=== PATIENT | female | born 1945 | race African-American/Black ===

== ENCOUNTER 2017-04-05 08:44 | Emergency (ER) | payer MEDICARE, MEDICAID | END 2017-04-05 09:29 | disposition home or self-care (01) | LOC: ER 08:44 | DX: L24.0 Irritant contact dermatitis due to detergents (principal); E11.9 Type 2 diabetes mellitus without complications; I10 Essential (primary) hypertension | CPT/HCPCS: 99283 ==

== ENCOUNTER 2019-03-19 05:35 | Emergency (ER) | payer MEDICARE, MEDICAID ==
[~2019-03-19] VITALS: Ht 162.6 cm; Wt 62.6 kg
[~2019-03-19 05:35] MED LIST: TRIA15OI TP
[2019-03-19 05:45] VITALS: BP 134/75
--- NOTE | 2019-03-19 06:24 | PHYS DOC ---
Past Medical History Past Medical History: Diabetes-Type II, Hypertension Additional Past Medical Histor: breast cancer Past Surgical History: Other Additional Past Surgical Histo: R breast cancer- tumor and lymphnodes removed Smoking: Cigarettes (The patient is a nonsmoker.) Alcohol Use: None Drug Use: None Adult General Chief Complaint Chief Complaint: Congestion HPI HPI Patient is a 73-year-old female who presents to the emergency department for evaluation of over a week of nasal congestion, and a nonproductive cough. She reports shortness of breath, primarily related to her nasal congestion. She has not had any chest pain. She has not had any fevers or chills, nausea, vomiting, or abdominal pain. There are no alleviating or exacerbating factors to her symptoms. Review of Systems Review of Systems Constitutional: Denies fever or chills [] Eyes: Denies change in visual acuity, redness, or eye pain [] HENT: Denies otalgia or sore throat [] Respiratory: Reports cough and shortness of breath [] Cardiovascular: The patient denies any chest pain, palpitations, or orthopnea [] GI: Denies abdominal pain, nausea, vomiting, bloody stools or diarrhea [] : Denies dysuria or hematuria [] Musculoskeletal: Denies back pain or joint pain [] Integument: Denies rash or skin lesions [] Neurologic: Denies headache, focal weakness or sensory changes [] Endocrine: Denies polyuria or polydipsia [] All other systems were reviewed and found to be within normal limits, except as documented in this note. Allergies Allergies Allergies Coded Allergies Type Severity Reaction Last Updated Verified Penicillins Allergy Intermediate 04/05/17 Yes Physical Exam Physical Exam PHYSICAL EXAM: CONSTITUTIONAL: Well developed, well nourished HEAD: normocephalic, atraumatic EENT: PERRL, EOMI. Conjunctivae normal color, sclerae non-icteric; moist mucous membranes. NECK: Supple, non-tender; no meningismus. LUNGS: Lungs CTA, breathing even and unlabored. Normal air movement. HEART: Regular rate and rhythm, there is a soft diastolic murmur CHEST: No deformity; non-tender ABDOMEN: The abdomen is soft, and non-tender, no masses or bruits. EXTREM: Normal ROM; no deformity, no calf tenderness. Normal pulses palpable in all extremities. There is no pedal edema. SKIN: No rash; no diaphoresis NEURO: Alert; normal speech and cognition; CN's grossly intact; strength grossly intact without focal deficit. BACK: No CVA TTP. Current Patient Data Vital Signs Vital Signs Date Time Temp Pulse Resp B/P (MAP) Pulse Ox O2 Delivery O2 Flow Rate FiO2 03/19/19 05:45 97.5 103 20 134/75 (94) 99 Room Air 97.5 Lab Values Laboratory Tests Test 03/19/19 06:35 Influenza Type A Antigen Negative (NEGATIVE) Influenza Type B Antigen Negative (NEGATIVE) EKG EKG Occult normal sinus rhythm at a rate of 97 beats for minute, left axis deviation, normal intervals, borderline left ventricular hypertrophy, there are no acute ischemic ST/T changes.[] Radiology/Procedures Radiology/Procedures PROCEDURE: CHEST PA & LATERAL Chest, PA and Lateral: Technique: PA and lateral views of the chest were obtained. History: Cough. Comparison: None. Findings: The cardiomediastinal silhouette grossly appears unremarkable. Mild right lung base airspace opacity likely atelectasis or infiltrates. Moderate degenerative changes thoracic spine. IMPRESSION: 1. Patchy airspace opacities identified in the right lung base likely atelectasis or infiltrates. Follow-up to resolution.[] Course & Med Decision Making Course & Med Decision Making Pertinent Labs and Imaging studies reviewed. (See chart for details) []Patient remains stable. I discussed test results, the need for close follow- up, and return precautions. Dragon Disclaimer Dragon Disclaimer This electronic medical record was generated, in whole or in part, using a voice recognition dictation system. Departure Departure Impression: Primary Impression: Cough Disposition: 01 HOME, SELF-CARE Condition: STABLE Referrals: KELSY INIGUEZ MD (PCP) Patient Instructions: Cough, Adult, Pneumonia, Adult Scripts Azithromycin (AZITHROMYCIN TABLET) 250 Mg Tablet 1 PKG PO UD, #6 TAB Prov: CARLOS SHABAZZ MD 03/19/19 CARLOS SHABAZZ MD Mar 19, 2019 06:24
--- NOTE | 2019-03-19 06:47 | RAD ---
Chest, PA and Lateral: Technique: PA and lateral views of the chest were obtained. History: Cough. Comparison: None. Findings: The cardiomediastinal silhouette grossly appears unremarkable. Mild right lung base airspace opacity likely atelectasis or infiltrates. Moderate degenerative changes thoracic spine. IMPRESSION: 1. Patchy airspace opacities identified in the right lung base likely atelectasis or infiltrates. Follow-up to resolution. Electronically signed by: Scott Randolph MD (03/19/2019 6:44 AM) [facility]
[2019-03-19 07:29] LABS: INFLUENZA A PATIENT NEGATIVE (NEGATIVE); INFLUENZA B PATIENT NEGATIVE (NEGATIVE)
[2019-03-19] MEDS ORDERED: AZIT250T6 PO (07:34)
--- NOTE | 2019-03-19 07:35 | EKG ---
[facility] [address] [place] [address] Test Date: 2019-03-19 Test Time: 06:40:54 Pat Name: NOEMÍ JAIN Department: Room: Gender: F Methods Analyst Data Processing: : 1945 Requested By: CARLOS SHABAZZ Order Number: [id number] Reading MD: Pasquale Cerna MD Measurements Intervals Fine Rate: 97 P: 48 MD: 162 QRS: -8 QRSD: 86 T: 45 QT: 372 QTc: 477 Interpretive Statements SINUS RHYTHM Electronically Signed On 03-19-2019 13:40:52 ANIMAL CYTOLOGIST by Pasquale Cerna MD
== END 2019-03-19 07:42 | disposition home or self-care (01) ==
LOC: ER 05:35
DX: R05 Cough (principal); R09.81 Nasal congestion; R06.02 Shortness of breath; E11.9 Type 2 diabetes mellitus without complications; I10 Essential (primary) hypertension; Z88.0 Allergy status to penicillin
CPT/HCPCS: 71046; 87804; 93005; 99285-25

== ENCOUNTER → 2019-04-04 | Outpatient (CLI) | payer MEDICARE, MEDICAID ==
[2019-03-19 05:45] VITALS: BP 134/75
[~2019-04-04] MED LIST changes: +AZIT250T6 PO
--- NOTE | 2019-04-04 09:06 | RAD ---
EXAM: Chest, 2 views. HISTORY: Pneumonia. COMPARISON: 03/19/2019 FINDINGS: 2 views of the chest are obtained. There has been segmental interval increase in a small right pleural effusion and right lower lobe interstitial infiltrate. There is stable suspected lingular and left lower lobe atelectasis. There is stable enlargement of the cardiac silhouette. There is right apical pleural parenchymal scarring. There are changes consistent with right breast conservation therapy with axillary lymph node dissection. IMPRESSION: Slight interval increase in a suspected small right pleural effusion and right lower lobe interstitial infiltrate. This may be superimposed on chronic interstitial changes given overlying findings consistent with breast conservation therapy. Electronically signed by: Sirisha Aguirre MD (04/04/2019 9:03 AM) [id number]
== END | disposition home or self-care (01) ==
LOC: RAD 08:43
PROVIDERS: ATTEND Internal Medicine
DX: J90 Pleural effusion, not elsewhere classified (principal); J98.4 Other disorders of lung; J18.9 Pneumonia, unspecified organism
CPT/HCPCS: 71046

== ENCOUNTER 2020-08-31 08:32 | Emergency (ER) | payer MEDICARE, MEDICAID ==
[~2020-08-31] VITALS: Ht 162.6 cm; Wt 64.4 kg
[2020-08-31] MEDS ORDERED: LIDOCAINE (700MG/PATCH) PATCH. TD SCH (09:00)
[2020-08-31 09:23] VITALS: BP 187/88
--- NOTE | 2020-08-31 10:29 | RAD ---
EXAM: Pelvis and right hip, 3 views. HISTORY: Pain. COMPARISON: None. FINDINGS: A frontal view of the pelvis and 2 views of the right hip are obtained. There is no fractur e, dislocation or subluxation. There is degenerative change involving the lower lumbar spine. IMPRESSION: No acute osseous finding. Electronically signed by: Sirisha Aguirre MD (08/31/2020 10:27 AM) [id number]
--- NOTE | 2020-08-31 10:49 | PHYS DOC ---
Past Medical History Past Medical History: Cancer, Diabetes-Type II, Hypertension, Other Additional Past Medical Histor: breast cancer Past Surgical History: Other Additional Past Surgical Histo: MASECTOMY Smoking Status: Never Smoker Alcohol Use: None Drug Use: None General Adult EDM: Chief Complaint: HIP PAIN HPI: HPI: 74-year-old female presents the ED with complaints of right hip pain that started on Monday when patient slipped and fell in a grocery store due to the floor being wet. Patient reports she landed on her right hip and has been able to ambulate afterwards. Was told to be checked out because she has pain when she leans on her right hip/side. Came today and not Monday "Because I was told to get checked out. I know it's not broken, I can walk on it." No prior injury to this hip. No pain in the middle of her back, right knee, or right ankle. Has not taken anything for the pain. Review of Systems: Review of Systems: Constitutional: Denies fever or chills. [] Eyes: Denies change in visual acuity. [] HENT: Denies nasal congestion or sore throat. [] Respiratory: Denies cough or shortness of breath. [] Cardiovascular: Denies chest pain or edema. [] GI: Denies abdominal pain, nausea, vomiting, bloody stools or diarrhea. [] : Denies dysuria, hematuria, vaginal bleeding or saddle anesthesia Musculoskeletal: Denies back pain or CVA tenderness Integument: Denies rash or diaphoresis Neurologic: Denies headache, neck pain, focal weakness or sensory changes. [] Endocrine: Denies polyuria or polydipsia. [] Lymphatic: Denies swollen glands. [] Psychiatric: Denies depression or anxiety. [] Heart Score: C/O Chest Pain: No Risk Factors: Risk Factors: DM, Current or recent (<one month) smoker, HTN, HLP, family history of CAD, obesity. Risk Scores: Score 0 - 3: 2.5% MACE over next 6 weeks - Discharge Home Score 4 - 6: 20.3% MACE over next 6 weeks - Admit for Clinical Observation Score 7 - 10: 72.7% MACE over next 6 weeks - Early Invasive Strategies Current Medications: Current Medications Medications (Trade) Dose Ordered Sig/Helena Start Time Stop Time Status Last Admin Dose Admin Lidocaine (Lidoderm) 1 patch DAILY 5/24/21 09:00 08/31/20 10:10 1 PATCH Allergies: Allergies: Allergies Coded Allergies Type Severity Reaction Last Updated Verified Penicillins Allergy Intermediate 04/05/17 Yes codeine Allergy Unknown UNKNOWN 08/31/20 Yes Physical Exam: PE: Constitutional: Well developed, well nourished, no acute distress, non-toxic appearance. HENT: Normocephalic, atraumatic, no signs of head trauma Eyes: EOMI, conjunctiva normal, no discharge. Neck: Normal range of motion, supple, Cardiovascular: S1/2 present, regular rhythm Lungs & Thorax: Speaking in full sentences, bilateral equal chest rise, no tachypnea or increased work of breathing Abdomen: soft, no tenderness, Skin: Warm, dry, no erythema, no rash, normal skin turgor, cap refill less than 1 second to both legs Back: No midline tenderness, no CVA tenderness. [] Extremities: No reproducible tenderness, patient's location of pain is proximal right hip over greater/lesser trochanters, no pain w/pelvic rocking, scar over right lateral thigh, no pain over right knee or ankle, no cyanosis, no lower extremity edema Neurologic: Alert and oriented X 3, normal motor function, normal sensory function, no focal deficits noted. [] Psychologic: Affect normal, judgement normal, mood normal. [] Nexus C-spine criteria are negative: There is no post midline tenderness, the patient is not intoxicated, there is a normal level of alertness, there are no focal neurologic deficits and there are no distracting injuries. Current Patient Data: Vital Signs: Vital Signs Date Time Temp Pulse Resp B/P (MAP) Pulse Ox O2 Delivery O2 Flow Rate FiO2 08/31/20 09:23 98.4 67 17 187/88 (121) 100 Room Air 98.4 EKG: EKG: [] Radiology/Procedures: Radiology/Procedures: IMAGING REPORT Signed PATIENT: NOEMÍ JAIN ACCOUNT: [id number] : 1945 LOCATION: ER AGE: 74 SEX: F EXAM STATUS: REG ER ORD. PHYSICIAN: KARIME KHAILL DO REASON: right Hip pain PROCEDURE: HIP RIGHT 2V WITH PELVIS EXAM: Pelvis and right hip, 3 views. HISTORY: Pain. COMPARISON: None. FINDINGS: A frontal view of the pelvis and 2 views of the right hip are obtain ed. There is no fracture, dislocation or subluxation. There is degenerative change involving the lower lumbar spine. IMPRESSION: No acute osseous finding. Electronically signed by: Sirisha Rogers MD (08/31/2020 10:27 AM) [id number] DICTATED and SIGNED BY: SIRISHA ROGERS MD DATE: 08/31/20 [id number] 0 Course & Med Decision Making: Course & Med Decision Making Pertinent Labs and Imaging studies reviewed. (See chart for details) Concern for accidental blunt injury to right hip with no inability to bear weight, no signs of trauma. Patient well-appearing and in no distress. Patient refused to wait for her follow-up instructions/DC papers. Will discharge home with strict ED return precautions were given for saddle anesthesia, urine or bowel retention or incontinence, midline back pain or difficulties ambulating. Encouraged urgent outpatient follow-up with PMD and orthopedic surgery for definitive management. Life-threatening processes were considered but are low suspicion at this time, given history, physical exam and ED workup. Pt was educated on all prescription medications and adverse effects. All patient's questions were answered and pt was stable at time of discharge. Life/limb-threatening differential includes but is not limited to, avascular necrosis, septic arthritis, malignancy, compartment syndrome, fracture/ligamentous injury/overuse, decompression sickness, seronegative spondyloarthropathies, trauma including dislocation/fracture, Lyme disease, lupus, arthritis differentials, gout/pseudogout or decompression sickness. I spoken with the patient and her caregivers. I explained the patient's condition, diagnoses and treatment plan based on the information available to me at this time. I have answered the patient and her caregiver's questions and addressed any concerns. The patient and her caregivers have a good understanding of patient's diagnosis, condition and treatment plan as can be expected at this point. Vital signs have been stable. Patient's condition is stable and appropriate for discharge from the emergency department. Patient will pursue further outpatient evaluation with primary care physician or other designated or consulting physician as outlined in the discharge instructions. The patient and/or caregivers are agreeable to this plan of care and follow-up instructions have been explained in detail. The patient and/or caregivers have received these instructions in written form and have expressed an understanding of the discharge instructions. The patient and/or caregivers are aware that any significant change of condition or worsening of symptoms should prompt immediate return to this or the closest emergency department or call to 911. Andi Disclaimer: Andi Disclaimer: This electronic medical record was generated, in whole or in part, using a voice recognition dictation system. Departure Departure Impression: Primary Impression: Right hip pain Disposition: HOME / SELF CARE / HOMELESS Condition: STABLE Referrals: KELSY INIGUEZ MD (PCP) Follow-up with your primary care physician in the next week or FOLLOW UP WITH FAMILY MEDICINE: [address], [address] [place] [address] Patient Instructions: Hip Pain Additional Instructions: FOLLOW UP WITH ORTHOPEDICS: May benefit from further imaging/follow-up for definitive management Orthopaedic Sports Medicine Orthopaedic Surgery [facility] [address], [address] [place] [address] EMERGENCY DEPARTMENT GENERAL DISCHARGE INSTRUCTIONS Thank you for coming to [facility] Emergency Department (ED) today and trusting us with you care. We trust that you had a positive experience in our Emergency Department. If you wish to speak to the department management, you may call the Director at [phone]. YOUR FOLLOW UP INSTRUCTIONS ARE FOLLOWS: 1. Do you have a private Doctor? If you do not have a private doctor, please ask for a resource list of physicians or clinics that may be able to assist you with follow up care. 2. The Emergency Physicain has interpreted your x-rays. The X-Ray specialist will also review them. If there is a change in the findings, you will be notified in 48 hours when at all possible. 3. A lab test or culture has been done, your results will be reviewed and you will be notified if you need a change in treatment. ADDITIONAL INSTRUCTIONS AND INFORMATION: 1. Your care today has been supervised by a physician who is specially trained in emergency care. Many problems require more than one evaluation for a complete diagnosis and treatment. We recommend that you schedule your follow up appointment as recommended to ensure complete treatment of you illness or injury. If you are unable to obtain follow up care and continue to have a problem, or if your condition worsens, we recommend that you return to the ED. 2. We are not able to safely determine your condition over the phone nor are we able to give sound medical advice over the phone. For these safety reasons, if you call for medical advice we will ask you to come to the ED for further evaluation. 3. If you have any questions regarding these discharge instructions please call the ED at [phone]. SAFETY INFORMATION: In the interest of safety, wellness, and injury prevention; we encourage you to wear your sealbelt, if you smoke; quite smoking, and we encourage family to use a protective helmet for bicycling and other sporting events that present an increased risk for head injury. IF YOUR SYMPTOMS WORSEN OR NEW SYMPTOMS DEVELOP, OR YOU HAVE CONCERNS ABOUT YOUR CONDITION; OR IF YOUR CONDITION WORSENS WHILE YOU ARE WAITING FOR YOUR FOLLOW UP APPOINTMENT; EITHER CONTACT YOUR PRIMARY CARE DOCTOR, THE PHYSICIAN WHOSE NAME AND NUMBER YOU WERE GIVEN, OR RETURN TO THE ED IMMEDIATELY. Scripts Lidocaine (Lido Jamal) 1 Each Adh..patch 1 EACH TP DAILY for 5 Days, #5 PATCH Apply 1 patch for 12 hours, remove for another 12 hours. May repeat, 1 patch per day as instructed above. Prov: KARIME KHALIL DO 08/31/20 KARIME KHALIL DO August 31, 2020 10:49
[2020-08-31] MEDS ORDERED: LIDO1ADH78 TP (11:07)
== END 2020-08-31 11:23 | disposition home or self-care (01) ==
LOC: ER 08:32
DX: M25.551 Pain in right hip (principal); G89.11 Acute pain due to trauma; E11.9 Type 2 diabetes mellitus without complications; I10 Essential (primary) hypertension; W01.0XXA Fall on same level from slipping, tripping and stumbling without subsequent striking against object, initial encounter; Y93.89 Activity, other specified; Y92.512 Supermarket, store or market as the place of occurrence of the external cause; Y99.8 Other external cause status
CPT/HCPCS: 73502; 99283; 99284